=== PATIENT | female | born 1975 | race Caucasian/White ===

== ENCOUNTER 2020-08-24 10:52 | Emergency (ER) | payer SELFPAY ==
[~2020-08-24] VITALS: Ht 160 cm; Wt 68.0 kg
[2020-08-24 11:05] VITALS: BP 111/80
[2020-08-24] MEDS ORDERED: LIDOCAINE 1% INJ 20 ML 20 ML VIAL INJ ONE (11:15)
[2020-08-24] MEDS ORDERED: cefTRIAXone 1,000 MG/2.86 ml vial (IM ONLY) IM SCH (11:15)
[2020-08-24] MEDS ORDERED: DOXY100T2 PO (11:32)
--- NOTE | 2020-08-24 11:34 | ED Integumentary General ---
General Chief Complaint: Skin/Wound Problems Stated Complaint: R LEG INFECTION Nursing Triage Note: PT AMB TO [facility] WITH CONCERN FOR ABSCESS. STATES HAS BOIL ON RIGHT THIGH AND HAS BEEN TAKING BACTRIM Source: patient Exam Limitations: no limitations History of Present Illness Date Seen by Provider: Aug 24, 2020 Time Seen by Provider: 11:30 Initial Comments To ER with concern for abscess to the right thigh present for several days. She has been taking Bactrim without improvement. Timing/Duration: just prior to arrival Associated Symptoms: denies symptoms Allergies and Home Medications Allergies Coded Allergies: No Known Drug Allergies (Unverified , 08/24/20) Patient Home Medication List Home Medication List Reviewed: Yes Review of Systems Review of Systems Constitutional: see HPI EENTM: see HPI Respiratory: no symptoms reported Cardiovascular: no symptoms reported Genitourinary: no symptoms reported Musculoskeletal: see HPI Skin: see HPI Psychiatric/Neurological: No Symptoms Reported Past Qfgajko-Ldqtio-Bavosq Hx Patient Social History Alcohol Use: Denies Use Recreational Drug Use: No Smoking Status: Current Everyday Smoker Type Used: Cigarettes Recent Foreign Travel: No Contact w/Someone Who Travel: No Recent Infectious Disease Expo: No Recent Hopitalizations: No Immunizations Up To Date Tetanus Booster (TDap): Unknown Seasonal Allergies Seasonal Allergies: No Past Medical History Surgeries: Yes Section Respiratory: No Cardiac: No Neurological: No Genitourinary: No Gastrointestinal: No Musculoskeletal: No Endocrine: No HEENT: No Cancer: No Psychosocial: No Integumentary: No Blood Disorders: No Physical Exam Vital Signs Vital Signs - First Documented 08/24/20 11:05 Temp 36.0 Pulse 80 Resp 18 B/P (MAP) 111/80 (90) Pulse Ox 100 O2 Delivery Room Air Capillary Refill : Less Than 3 Seconds General Appearance: WD/WN, no apparent distress Respiratory: no respiratory distress, no accessory muscle use Neurologic/Psychiatric: alert, normal mood/affect, oriented x 3 Skin: normal color, warm/dry Skin Problem Location: lower extremities Skin Problem Character: abscess (fluctuant abscess to the anterior right thigh) Procedures/Interventions I&D : Blade Size: 11 Progress Anesthetized with 1 mL of 1% lidocaine without epinephrine. Stab incision made with an 11 blade scalpel. Moderate amount of purulent material expressed. Culture collected and sent to lab. Irrigated with saline, packed with plain quarter-inch packing. Progress/Results/Core Measures Results/Orders My Orders Orders - VIANNEY VIEYRA APRN Wound Culture (08/24/20 11:15) Ceftriaxone For Im Use (Rocephin For Im (08/24/20 11:15) Lidocaine 1% Inj 20 Ml (Xylocaine 1% Inj (08/24/20 11:15) Vital Signs/I&O 08/24/20 11:05 Temp 36.0 Pulse 80 Resp 18 B/P (MAP) 111/80 (90) Pulse Ox 100 O2 Delivery Room Air Blood Pressure Mean: 90 Departure Impression Primary Impression: Abscess Disposition: HOME, SELF-CARE Condition: Stable Departure-Patient Inst. Decision time for Depature: 11:31 Referrals: NO,LOCAL PHYSICIAN (PCP) Primary Care Physician Patient Instructions: Abscess Incision and Drainage (DC) Add. Discharge Instructions: 1. Tylenol and ibuprofen for pain control. You can remove the packing tomorrow evening by simply pulling on it. Return to ER for any worsening. This will con tinue to ooze and drain a bit for about another week. Would be a good idea to keep it covered with either gauze or Band-Aid to collect drainage. All discharge instructions reviewed with patient and/or family. Voiced understanding. Scripts Doxycycline Hyclate (Doxycycline Hyclate) 100 Mg Tablet 100 MG PO BID, #14 TAB 0 Refills Prov: VIANNEY VIEYRA APRN 08/24/20 Work/School Note: Work Release Form Date Seen in the Emergency Department: Aug 24, 2020 Return to Work: Aug 26, 2020 VIANNEY VIEYRA APRN Aug 24, 2020 11:34
== END 2020-08-24 11:43 | disposition home or self-care (01) ==
LOC: EDUNIT# 10:52 → ER 10:54
DX: L02.415 Cutaneous abscess of right lower limb (principal); F17.210 Nicotine dependence, cigarettes, uncomplicated
CPT/HCPCS: 10061; 87070; 87077; 87205